=== PATIENT | female | born 2000 | race American Indian/Alaskan Native ===

== ENCOUNTER 2019-12-13 10:45 | Emergency (ER) | payer MEDICAID ==
[2019-12-13 14:16] LABS: Bilirubin,Urine NEG (Negative); Blood,Urine LG (Negative); Color,Urine Yellow (Yellow); Mucus,Urine FEW /HPF; Protein,Urine <15 mg/dL mg/dL (Negative); Urobilinogen,Urine < 2.0 mg/dL (<2.0)
[2019-12-13 14:22] LABS: HCG Qualitative,Urine Negative (Negative)
[2019-12-13 18:03] LABS: Hematocrit 36.1 % (30.3-42.9); Mean Corpuscular HGB Conc 33 % (30-34); Mean Corpuscular Volume 90 fl (79-97); Platelet Count 241 K/mm3 (140-440); Red Blood Count 4.02 M/mm3 (3.65-5.03); Red Cell Distribution Width 13.4 % (13.2-15.2)
--- NOTE | 2019-12-13 18:34 | Emergency Department Report ---
ED Female HPI - General Chief complaint: Vaginal Bleeding Stated complaint: BLEEDING HEAVY 2 WKS/PAIN Time Seen by Provider: 12/13/19 15:45 Source: patient Mode of arrival: Ambulatory Limitations: No Limitations - History of Present Illness Initial comments: 19-year-old female patient presents with complaints of heavy vaginal bleeding times today. Patient states she gave to a child about 8 months ago vaginally and denies any complications. She reports that she has been bleeding intermittently for the past month since stopping breast-feeding, however today she is bleeding very heavily and passing large clots. Patient states prior to arrival, she soaked through 8 pads. She denies any vaginal discharge, dysuria, hematuria, dyspareunia, or pelvic pain. Patient also denies any history of known fibroids, known bleeding disorders, dizziness, or syncopal episodes. She is well-appearing and in no acute distress. MD Complaint: vaginal bleeding ED Review of Systems ROS: Stated complaint: BLEEDING HEAVY 2 WKS/PAIN Other details as noted in HPI Constitutional: denies: diaphoresis, fever, malaise, weakness Respiratory: denies: shortness of breath Cardiovascular: denies: chest pain Gastrointestinal: denies: abdominal pain, nausea, vomiting, constipation, melena, hematochezia Genitourinary: abnormal menses. denies: dysuria, frequency, hematuria, discharge, dyspareunia Musculoskeletal: denies: joint swelling Neurological: denies: headache, paresthesias Hematological/Lymphatic: denies: easy bleeding, easy bruising ED Past Medical Hx - Past Medical History Previous Medical History?: No - Surgical History Past Surgical History?: No ED Physical Exam - General Limitations: No Limitations General appearance: alert, in no apparent distress - Head Head exam: Present: atraumatic, normocephalic - Eye Eye exam: Present: normal appearance - ENT ENT exam: Present: mucous membranes moist - Respiratory Respiratory exam: Present: normal lung sounds bilaterally. Absent: respiratory distress - Cardiovascular Cardiovascular Exam: Present: regular rate, normal rhythm. Absent: systolic murmur, diastolic murmur, rubs, gallop - GI/Abdominal GI/Abdominal exam: Present: soft, normal bowel sounds. Absent: distended, tenderness, guarding, rebound, rigid - Neurological Exam Neurological exam: Present: alert, oriented X3 - Skin Skin exam: Present: warm, dry, intact, normal color. Absent: rash, cyanosis, diaphoretic, petechiae, ecchymosis ED Course Vital Signs 12/13/19 11:00 Temperature 97.7 F Pulse Rate 63 Respiratory 18 Rate Blood Pressure 114/45 O2 Sat by Pulse 100 Oximetry ED Medical Decision Making - Lab Data Result diagrams: 12/13/19 17:29 Lab Results 12/13/19 12/13/19 Range/Units 17:29 Unknown WBC 4.4 L (4.5-11.0) K/mm3 RBC 4.02 (3.65-5.03) M/mm3 Hgb 12.0 (10.1-14.3) gm/dl Hct 36.1 (30.3-42.9) % MCV 90 (79-97) fl MCH 30 (28-32) pg MCHC 33 (30-34) % RDW 13.4 (13.2-15.2) % Plt Count 241 (140-440) K/mm3 Lymph % (Auto) Inspector Bullet Slugs Urine Color Yellow (Yellow) Urine Turbidity Hazy (Clear) Urine pH 7.0 (5.0-7.0) Ur Specific [place] 1.020 (1.003-1.030) Urine Protein <15 mg/dl (Negative) mg/dL Urine Glucose (UA) Neg (Negative) mg/dL Urine Ketones Neg (Negative) mg/dL Urine Blood Lg (Negative) Urine Nitrite Neg (Negative) Urine Bilirubin Neg (Negative) Urine Urobilinogen < 2.0 (<2.0) mg/dL Ur Leukocyte Esterase Neg (Negative) Urine WBC (Auto) 2.0 (0.0-6.0) /HPF Urine RBC (Auto) 1.0 (0.0-6.0) /HPF U Epithel Cells (Auto) 5.0 (0-13.0) /HPF Urine Mucus Few /HPF Urine HCG, Qual Negative (Negative) - Medical Decision Making Patient here with complaints of heavy vaginal bleeding today. She states she has had intermittent bleeding x1 month after discontinuing breast-feeding. She has no pelvic pain on exam and denies any STI symptoms. Hemoglobin = 12. UA is negative for infection. Patient is well-appearing and vitals are normal. She is stable for discharge home. Recommend follow-up in the next few days with her [facility] for further evaluation. Lucille Cabrera, per pt. Discussed very strict return precautions concerning patient volume of bleeding and signs and symptoms that should prompt immediate return to the emergency department, patient verbalizes understanding Critical care attestation.: If time is entered above; I have spent that time in minutes in the direct care of this critically ill patient, excluding procedure time. ED Disposition Clinical Impression: Abnormal vaginal bleeding Disposition: TO HOME OR SELFCARE Is pt being admited?: No Condition: Stable Referrals: PRIMARY CARE, [Primary Care Provider] - 3-5 Days
[2019-12-13 19:06] VITALS: BP 106/68
[2019-12-13 21:27] LABS: Eosinophils % (Manual) 0 % (0.0-4.3); Total Cells Counted 100
[2019-12-13 21:28] LABS: Anisocytosis Few; Large Platelets Few; Platelet Estimate Consistent w Auto
== END 2019-12-13 19:07 | disposition home or self-care (01) ==
LOC: ED 10:45
DX: N93.9 Abnormal uterine and vaginal bleeding, unspecified (principal)
CPT/HCPCS: 36415; 81001; 81025; 85007; 85025; 86850; 86900; 86901; 99283

== ENCOUNTER 2020-10-07 20:22 | Emergency (ER) | payer MEDICAID ==
[2020-10-07 23:12] LABS: Basophils % (Auto) 0.2 % (0.0-1.8); Hematocrit 39.4 % (30.3-42.9); Hemoglobin 13.5 gm/dl (10.1-14.3); Lymphocytes # (Auto) 2.4 K/mm3 (1.2-5.4); Lymphocytes % (Auto) 24.4 % (13.4-35.0); Mean Corpuscular HGB Conc 34 % (30-34); Mean Corpuscular Volume 91 fl (79-97); Monocytes # (Auto) 1.1 K/mm3 (0.0-0.8); Monocytes % (Auto) 10.6 % (0.0-7.3); Platelet Count 303 K/mm3 (140-440); Red Blood Count 4.32 M/mm3 (3.65-5.03)
[2020-10-07 23:18] VITALS: BP 126/81
[2020-10-07 23:33] LABS: Alanine Aminotransferase 21 units/L (7-56); Albumin 4.8 g/dL (3.9-5); Blood Urea Nitrogen 9 mg/dL (7-17); Hemolysis Index 13
[2020-10-07 23:37] LABS: BUN/Creatinine Ratio 18
[2020-10-08 00:58] LABS: Bacteria,Urine 1+ /HPF (Negative); Bilirubin,Urine NEG (Negative); Blood,Urine NEG (Negative); Color,Urine Yellow (Yellow); Hyaline Casts,Urine 3 /LPF; Mucus,Urine 3+ /HPF
[2020-10-08] MEDS ORDERED: ONDANSETRON 4 MG ODT TAB PO ONE (03:03)
[2020-10-08] MEDS ORDERED: SODIUM CHLORIDE 0.9% 1000 ML 1,000 ML IV ONE (03:35)
[2020-10-08] MEDS ORDERED: PYRIDOXINE 50 MG TAB PO SCH (03:35)
[2020-10-08] MEDS ORDERED: diphenhydrAMINE 50 MG/ML VIAL IV STA (03:35)
[2020-10-08] MEDS ORDERED: METOCLOPRAMIDE 10 MG/2 ML INJ IV STA (03:35)
--- NOTE | 2020-10-08 06:23 | Emergency Department Report ---
ED N/V/D HPI - General Chief complaint: Abdominal Pain Stated complaint: NAUSEA Time Seen by Provider: 10/08/20 03:33 Source: patient Mode of arrival: Ambulatory Limitations: No Limitations - History of Present Illness MD complaint: nausea, vomiting -: Gradual, days(s) Description of Vomiting: other Associated Abdominal Pain: No Consistency: constant Improves with: none Worsens with: eating Context: other ( with previous history of hyperemesis gravidarum and feels exact same symptoms at this present time during this . States she has been dealing with hyperemesis for the past couple weeks) Associated Symptoms: nausea/vomiting. denies: diaphoresis, fever/chills, loss of appetite, malaise, rash, dysuria - Related Data Previous Rx's Medication Instructions Recorded Last Taken Type Doxylamine Succinate/Vit B6 1 each PO TID #20 tablet. 10/08/20 Unknown Rx [Diclegis Dr 10-10 mg Tablet] Nitrofurantoin [place]/M-Cryst 100 mg PO Q12HR #14 capsule 10/08/20 Unknown Rx [Macrobid CAP] Allergies Allergy/AdvReac Type Severity Reaction Status Date / Time No Known Allergies Allergy Unverified 10/07/20 21:32 ED Review of Systems ROS: Stated complaint: NAUSEA Other details as noted in HPI Comment: All other systems reviewed and negative ED Past Medical Hx - Past Medical History Previous Medical History?: No - Surgical History Past Surgical History?: No - Social History Smoking Status: Never Smoker - Medications Home Medications: Home Medications Medication Instructions Recorded Confirmed Last Taken Type Doxylamine Succinate/Vit B6 1 each PO TID #20 tablet. 10/08/20 Unknown Rx [Diclegis Dr 10-10 mg Tablet] Nitrofurantoin [place]/M-Cryst 100 mg PO Q12HR #14 capsule 10/08/20 Unknown Rx [Macrobid CAP] ED Physical Exam - General Limitations: No Limitations General appearance: alert, in no apparent distress, other (In good spirits appears rather jovial for her condition) - Head Head exam: Present: atraumatic, normocephalic - Eye Eye exam: Present: normal appearance, PERRL, EOMI - ENT ENT exam: Present: normal exam, normal orophraynx, mucous membranes moist, TM's normal bilaterally - Neck Neck exam: Present: normal inspection, full ROM - Respiratory Respiratory exam: Present: normal lung sounds bilaterally. Absent: respiratory distress, wheezes, rhonchi, chest wall tenderness, accessory muscle use, decreased breath sounds - Cardiovascular Cardiovascular Exam: Present: regular rate, normal rhythm. Absent: systolic mu rmur, diastolic murmur, rubs, gallop - GI/Abdominal GI/Abdominal exam: Present: soft, normal bowel sounds - Extremities Exam Extremities exam: Present: normal inspection - Back Exam Back exam: Present: normal inspection - Neurological Exam Neurological exam: Present: alert, oriented X3 - Psychiatric Psychiatric exam: Present: normal affect, normal mood - Skin Skin exam: Present: warm, dry, intact, normal color. Absent: rash ED Course Vital Signs 10/07/20 23:18 Temperature 98.1 F Pulse Rate 103 H Respiratory 18 Rate Blood Pressure 126/81 [Left] O2 Sat by Pulse 99 Oximetry ED Medical Decision Making - Lab Data Result diagrams: 10/07/20 22:32 10/07/20 22:32 Lab Results 10/07/20 10/07/20 10/07/20 Range/Units 22:32 22:32 22:32 WBC 9.9 (4.5-11.0) K/mm3 RBC 4.32 (3.65-5.03) M/mm3 Hgb 13.5 (10.1-14.3) gm/dl Hct 39.4 (30.3-42.9) % MCV 91 (79-97) fl MCH 31 (28-32) pg MCHC 34 (30-34) % RDW 13.0 L (13.2-15.2) % Plt Count 303 (140-440) K/mm3 Lymph % (Auto) 24.4 (13.4-35.0) % [place] % (Auto) 10.6 H (0.0-7.3) % Eos % (Auto) 0.0 (0.0-4.3) % Baso % (Auto) 0.2 (0.0-1.8) % Lymph # (Auto) 2.4 (1.2-5.4) K/mm3 [place] # (Auto) 1.1 H (0.0-0.8) K/mm3 Eos # (Auto) 0.0 (0.0-0.4) K/mm3 Baso # (Auto) 0.0 (0.0-0.1) K/mm3 Seg Neutrophils % 64.8 (40.0-70.0) % Seg Neutrophils # 6.4 (1.8-7.7) K/mm3 Sodium 134 L (137-145) mmol/L Potassium 3.0 L (3.6-5.0) mmol/L Chloride 92.5 L (98-107) mmol/L Carbon Dioxide 25 (22-30) mmol/L Anion Gap 20 mmol/L BUN 9 (7-17) mg/dL Creatinine 0.5 L (0.6-1.2) mg/dL Estimated GFR > 60 ml/min BUN/Creatinine Ratio 18 % Glucose 122 H (65-100) mg/dL Calcium 10.0 (8.4-10.2) mg/dL Total Bilirubin 0.30 (0.1-1.2) mg/dL AST 22 (5-40) units/L ALT 21 (7-56) units/L Alkaline Phosphatase 75 (35-129) units/L Total Protein 9.0 H (6.3-8.2) g/dL Albumin 4.8 (3.9-5) g/dL Albumin/Globulin Ratio 1.1 % HCG, Qual Positive (Negative) Urine Color (Yellow) Urine Turbidity (Clear) Urine pH (5.0-7.0) Ur Specific [place] (1.003-1.030) Urine Protein (Negative) mg/dL Urine Glucose (UA) (Negative) mg/dL Urine Ketones (Negative) mg/dL Urine Blood (Negative) Urine Nitrite (Negative) Urine Bilirubin (Negative) Urine Urobilinogen (<2.0) mg/dL Ur Leukocyte Esterase (Negative) Urine WBC (Auto) (0.0-6.0) /HPF Urine RBC (Auto) (0.0-6.0) /HPF U Epithel Cells (Auto) (0-13.0) /HPF Urine Bacteria (Auto) (Negative) /HPF Hyaline Casts /LPF Urine Mucus /HPF Urine Yeast (Budding) /HPF 12/15/20 Range/Units 23:48 WBC (4.5-11.0) K/mm3 RBC (3.65-5.03) M/mm3 Hgb (10.1-14.3) gm/dl Hct (30.3-42.9) % MCV (79-97) fl MCH (28-32) pg MCHC (30-34) % RDW (13.2-15.2) % Plt Count (140-440) K/mm3 Lymph % (Auto) (13.4-35.0) % [place] % (Auto) (0.0-7.3) % Eos % (Auto) (0.0-4.3) % Baso % (Auto) (0.0-1.8) % Lymph # (Auto) (1.2-5.4) K/mm3 [place] # (Auto) (0.0-0.8) K/mm3 Eos # (Auto) (0.0-0.4) K/mm3 Baso # (Auto) (0.0-0.1) K/mm3 Seg Neutrophils % (40.0-70.0) % Seg Neutrophils # (1.8-7.7) K/mm3 Sodium (137-145) mmol/L Potassium (3.6-5.0) mmol/L Chloride (98-107) mmol/L Carbon Dioxide (22-30) mmol/L Anion Gap mmol/L BUN (7-17) mg/dL Creatinine (0.6-1.2) mg/dL Estimated GFR ml/min BUN/Creatinine Ratio % Glucose (65-100) mg/dL Calcium (8.4-10.2) mg/dL Total Bilirubin (0.1-1.2) mg/dL AST (5-40) units/L ALT (7-56) units/L Alkaline Phosphatase (35-129) units/L Total Protein (6.3-8.2) g/dL Albumin (3.9-5) g/dL Albumin/Globulin Ratio % HCG, Qual (Negative) Urine Color Yellow (Yellow) Urine Turbidity Clear (Clear) Urine pH 5.0 (5.0-7.0) Ur Specific [place] 1.030 (1.003-1.030) Urine Protein 100 mg/dl (Negative) mg/dL Urine Glucose (UA) Neg (Negative) mg/dL Urine Ketones 80 (Negative) mg/dL Urine Blood Neg (Negative) Urine Nitrite Neg (Negative) Urine Bilirubin Neg (Negative) Urine Urobilinogen 2.0 (<2.0) mg/dL Ur Leukocyte Esterase Mod (Negative) Urine WBC (Auto) 39.0 H (0.0-6.0) /HPF Urine RBC (Auto) 10.0 (0.0-6.0) /HPF U Epithel Cells (Auto) 2.0 (0-13.0) /HPF Urine Bacteria (Auto) 1+ (Negative) /HPF Hyaline Casts 3 /LPF Urine Mucus 3+ /HPF Urine Yeast (Budding) Few /HPF - Medical Decision Making Female presents emergency department complaining of nausea and vomiting without diarrhea. The patient is overall well-appearing and suspected to have hyperemesis gravidarum. Given the history of examination he does not appear to be an emergency cause for the symptoms such as small bowel obstruction, coronary syndrome, bowel ischemia, DKA, pancreatitis, appendicitis, acute abdomen no emergent problem. Patient was treated with Reglan, Benadryl, fluids as well as vitamin D6. After treatment patient is feeling much better tolerating p.o. fluids shows no signs of dehydration Critical care attestation.: If time is entered above; I have spent that time in minutes in the direct care of this critically ill patient, excluding procedure time. ED Disposition Clinical Impression: Hyperemesis arising during , UTI (urinary tract infection) Disposition: DC-01 TO HOME OR SELFCARE Is pt being admited?: No Does the pt Need Aspirin: No Condition: Stable Instructions: Hyperemesis Gravidarum, Morning Sickness, Abdominal Pain (ED) Prescriptions: Doxylamine Succinate/Vit B6 [Irina Cabrera 10-10 mg Tablet] 1 each PO TID #20 tablet. Nitrofurantoin [place]/M-Cryst [Macrobid CAP] 100 mg PO Q12HR #14 capsule Referrals: [facility] [Provider Group] - 3-5 Days PRIMARY CARE, [Primary Care Provider] - 3-5 Days
== END 2020-10-08 06:30 | disposition home or self-care (01) ==
LOC: ED 20:22
DX: O21.0 Mild hyperemesis gravidarum (principal); O23.41 Unspecified infection of urinary tract in pregnancy, first trimester
CPT/HCPCS: 36415; 80053; 81001; 84703; 85025; 87086; 96360; 96372; 99283; J1200; J2765; J7030; Q0162

== ENCOUNTER 2021-03-28 13:01 | Inpatient (IN) | payer MEDICAID ==
[2021-03-28] MEDS ORDERED: TERBUTALINE 1 MG/1 ML INJ SUB-Q PRN (15:27)
[2021-03-28] MEDS ORDERED: ePHEDrine SULFATE 50 MG/1 ML INJ IV PRN (15:27)
[2021-03-28] MEDS ORDERED: LIDOCAINE (2%) 20 MG/1 ML VIAL 20 ML MDV INFILTRATI ONE (15:27)
[2021-03-28] MEDS ORDERED: MINERAL OIL 30 ML ORAL LIQD PO PRN (15:27)
[2021-03-28] MEDS ORDERED: MAGNESIUM SULFATE 4 GM/100 ML BAG IV ONE (15:30)
[2021-03-28] MEDS ORDERED: fentaNYL 100 MCG/2 ML INJ IV PRN (15:32)
--- NOTE | 2021-03-28 15:47 | History and Physical Report ---
History of Present Illness Date of examination: 03/28/21 Date of admission: 03/28/2021 Chief complaint: PPROM History of present illness: 20yo at 31.6 weeks with CIERA 05/24/21 presents with ~24 hours of PPROM. She complains of irregular contractions, no vaginal bleeding and admits to good movement. PNC at [facility]: no PNR available at this time. Past History Past Surgical History: no surgical history - Obstetrical History Expected Date of Delivery: 05/24/21 Actual Gestation: 31 Week(s) 6 Day(s) : 2 Para: 1 Medications and Allergies Allergies Allergy/AdvReac Type Severity Reaction Status Date / Time No Known Allergies Allergy Unverified 10/07/20 21:32 Home Medications Medication Instructions Recorded Confirmed Last Taken Type Doxylamine Succinate/Vit B6 1 each PO TID #20 tablet. 10/08/20 Unknown Rx [Diclegis Dr 10-10 mg Tablet] Nitrofurantoin [place]/M-Cryst 100 mg PO Q12HR #14 capsule 10/08/20 Unknown Rx [Macrobid CAP] Active Meds: Active Medications Betamethasone Acet/Betameth SodPhos (Betamet Acet/Betamet Na Ph 6 Mg/Ml Inj 5 Ml Mdv) 12 mg IM Q24H AKILA Stop: 03/29/21 16:01 Ephedrine Sulfate (Ephedrine Sulfate 50 Mg/1 Ml Inj) 10 mg IV Q2M PRN PRN Reason: Hypotension Fentanyl (Fentanyl 100 Mcg/2 Ml Inj) 50 mcg IV Q6HR PRN PRN Reason: Pain, Moderate (4-6) Oxytocin/Sodium Chloride (Pitocin/Ns 30 Unit/500ml) 30 units in 500 mls @ 2 mls/hr IV TITR AKILA; Protocol Lactated Ringer's (Lactated Ringers) 1,000 mls @ 125 mls/hr IV DIRECT AKILA Magnesium Sulfate (Magnesium Sulfate 40gm/1000ml) 40 gm in 1,000 mls @ 50 mls/hr IV DIRECT AKILA Magnesium Sulfate (Magnesium Sulfate 4gm/100ml) 4 gm in 100 mls @ 300 mls/hr IV ONCE ONE Stop: 03/28/21 15:49 Ampicillin Sodium (Ampicillin/Ns 2 Gm/100 Ml) 2 gm in 100 mls @ 100 mls/hr IV Q6H AKILA; Protocol Erythromycin Lactobionate 250 (mg/ Sodium Chloride) 100 mls @ 100 mls/hr IV Q6H AKILA; Protocol Stop: 03/30/21 10:59 Mineral Oil (Mineral Oil 30 Ml Oral Liqd) 30 ml PO QHS PRN PRN Reason: Constipation Terbutaline Sulfate (Terbutaline 1 Mg/1 Ml Inj) 0.25 mg SUB-Q ONCE PRN PRN Reason: Hyperstimulation/Hypertonicity Review of Systems All systems: negative (see HPI) - Vital Signs Vital signs: Vital Signs Pulse BP 85 91/56 03/28/21 13:42 03/28/21 13:42 Temp Pulse Resp BP Pulse Ox 98.6 F 85 16 91/56 03/28/21 13:43 03/28/21 13:43 03/28/21 13:43 03/28/21 13:43 - Physical Exam Breasts: Positive: deferred Cardiovascular: Regular rate Lungs: Positive: Clear to auscultation Abdomen: Positive: normal appearance, normal bowel sounds Genitourinary (Female): Positive: normal external genitalia Vagina: Positive: normal moisture Uterus: Positive: other (FH30cm) Anus/Rectum: Positive: normal perianal skin Extremities: Positive: normal Deep Tendon Reflex Grade: Normal +2 - Obstetrical FHR: category 1 Cervical Dilatation: 0 Cervical Effacement Percentage: 75 station: -2 Uterine Contraction Pattern: Irregular Results Abnormal lab results 03/28/21 Range/Units 13:35 Membranes Rupture Positive A (Negative) All other labs normal. Assessment and Plan PPROM admission MgSO4 ABX steroids CFM obtain PNR Maternal/ well being reassuring at bedside. Maral Sharp MD
[2021-03-28] MEDS ORDERED: OXYTOCIN DRIP 30 UNITS/500 ML BAG IV SCH (16:00)
--- NOTE | 2021-03-28 16:01 | Ultrasound Report ---
ULTRASOUND OBSTETRIC LIMITED ULTRASOUND BIOPHYSICAL PROFILE INDICATION / CLINICAL INFORMATION: bpp/lisa. Clinical Gestational Age (GA): 31.6 weeks.days COMPARISON: None available. FINDINGS: Single intrauterine . BREATHING MOVEMENT = 2 GROSS BODY MOVEMENT = 2 TONE = 2 QUALITATIVE AMNIOTIC FLUID VOLUME = 0 TOTAL BIOPHYSICAL SCORE = 6/8 HEART RATE (beats per minute): 140 AMNIOTIC FLUID INDEX (cm) = 2.4 (normal = 7-24 cm) PRESENTATION: Cephalic. ADDITIONAL FINDINGS: None. IMPRESSION: 1. Biophysical Score = 6/8 , secondary to qualitative amniotic fluid volume is described below. 2. Oligohydramnios with LISA measuring 2.4 cm. Signer Name: Darrell Martínez MD Signed: 03/28/2021 3:56 PM Workstation Name: [id number]
[2021-03-28] MEDS: LACTATED RINGERS 1,000 ML IV SCH (16:30)
[2021-03-28] MEDS: BETAMET ACET/BETAMET NA PH 6 MG/ML INJ 5 ML MDV IM SCH (16:35)
[2021-03-28] MEDS: MAGNESIUM SULFATE 40GM/1000ML 40 GM/1,000 ML BAG IV SCH (17:00)
[2021-03-28] MEDS: AMPICILLIN/NS 2 GM/100 ML 2 GM/100 ML BAG IV SCH (17:00)
[2021-03-28 19:04] LABS: Hematocrit 27.5 % (30.3-42.9); Hemoglobin 9.4 gm/dl (10.1-14.3); Mean Corpuscular HGB Conc 34 % (30-34); Mean Corpuscular Volume 91 fl (79-97); Platelet Count 192 K/mm3 (140-440); Red Blood Count 3.02 M/mm3 (3.65-5.03); Red Cell Distribution Width 12.6 % (13.2-15.2)
[2021-03-28] MEDS: ERYTHROMYCIN LACTOBIONATE 250 MG in SODIUM CHLORIDE 0.9% 100 ML IV SCH ×2 (23:34→23:35)
[2021-03-29] MEDS: AMPICILLIN/NS 2 GM/100 ML 2 GM/100 ML BAG IV SCH ×4 (00:16→20:17)
[2021-03-29] MEDS: LACTATED RINGERS 1,000 ML IV SCH ×2 (02:17→16:49)
[2021-03-29] MEDS: ERYTHROMYCIN LACTOBIONATE 250 MG in SODIUM CHLORIDE 0.9% 100 ML IV SCH ×3 (07:12→18:39)
[2021-03-29 09:46] LABS: Hepatitis C Virus Antibody Non-Reactive (NonReactive)
--- NOTE | 2021-03-29 10:26 | Progress Note ---
Subjective - Subjective Date of service: 03/29/21 Interval history: 20yo at 32.0 weeks with PPROM. She is doing well at bedside. SP celestonex1 dose, second dose to be given this evening. An Amp/Erythro IVPB day #2 No contractions Category 1 strip [place]: not ana labs ordered in process [facility] consult pending Maternal/ well being reassuring at bedside. Maral Sharp MD Objective - Vital Signs Vital Signs: Vital Signs - 12hr 03/28/21 03/28/21 03/28/21 22:18 22:23 22:28 Temperature Pulse Rate 96 H 82 92 H Respiratory Rate Blood Pressure Blood Pressure [Left] O2 Sat by Pulse 98 100 100 Oximetry 03/28/21 03/28/21 03/28/21 22:33 22:38 22:43 Temperature Pulse Rate 90 87 89 Respiratory Rate Blood Pressure Blood Pressure [Left] O2 Sat by Pulse 100 100 100 Oximetry 03/28/21 03/28/21 03/28/21 22:48 22:53 22:58 Temperature Pulse Rate 86 89 91 H Respiratory Rate Blood Pressure Blood Pressure [Left] O2 Sat by Pulse 100 100 100 Oximetry 03/28/21 03/28/21 03/28/21 23:03 23:05 23:08 Temperature Pulse Rate 90 94 H 89 Respiratory Rate Blood Pressure Blood Pressure [Left] O2 Sat by Pulse 100 90 92 Oximetry 03/28/21 03/28/21 03/28/21 23:13 23:18 23:23 Temperature Pulse Rate 87 81 90 Respiratory Rate Blood Pressure Blood Pressure [Left] O2 Sat by Pulse 100 99 100 Oximetry 03/28/21 03/28/21 03/28/21 23:28 23:30 23:33 Temperature 98.5 F Pulse Rate 89 95 H Respiratory Rate Blood Pressure Blood Pressure [Left] O2 Sat by Pulse 100 99 Oximetry 03/28/21 03/28/21 03/28/21 23:38 23:42 23:43 Temperature Pulse Rate 82 92 H 86 Respiratory Rate Blood Pressure Blood Pressure [Left] O2 Sat by Pulse 99 94 100 Oximetry 03/28/21 03/28/21 03/28/21 23:48 23:53 23:58 Temperature Pulse Rate 84 84 91 H Respiratory Rate Blood Pressure Blood Pressure [Left] O2 Sat by Pulse 100 100 99 Oximetry 03/29/21 03/29/21 03/29/21 00:03 00:08 00:12 Temperature Pulse Rate 97 H 84 84 Respiratory Rate Blood Pressure 101/55 Blood Pressure [Left] O2 Sat by Pulse 99 98 Oximetry 03/29/21 03/29/21 03/29/21 00:13 00:18 00:23 Temperature Pulse Rate 92 H 92 H 94 H Respiratory Rate Blood Pressure Blood Pressure [Left] O2 Sat by Pulse 99 98 98 Oximetry 03/29/21 03/29/21 03/29/21 00:28 00:33 00:38 Temperature Pulse Rate 91 H 89 88 Respiratory Rate Blood Pressure Blood Pressure [Left] O2 Sat by Pulse 97 98 99 Oximetry 03/29/21 03/29/21 03/29/21 00:43 00:48 00:53 Temperature Pulse Rate 94 H 92 H 89 Respiratory Rate Blood Pressure Blood Pressure [Left] O2 Sat by Pulse 100 98 98 Oximetry 03/29/21 03/29/21 03/29/21 00:58 01:03 01:08 Temperature Pulse Rate 88 85 84 Respiratory Rate Blood Pressure Blood Pressure [Left] O2 Sat by Pulse 98 98 98 Oximetry 03/29/21 03/29/21 03/29/21 01:12 01:13 01:18 Temperature Pulse Rate 82 86 86 Respiratory Rate Blood Pressure 90/55 Blood Pressure [Left] O2 Sat by Pulse 98 98 Oximetry 03/29/21 03/29/21 03/29/21 01:23 01:28 01:33 Temperature Pulse Rate 86 88 86 Respiratory Rate Blood Pressure Blood Pressure [Left] O2 Sat by Pulse 98 98 98 Oximetry 03/29/21 03/29/21 03/29/21 01:38 01:43 01:48 Temperature Pulse Rate 86 88 84 Respiratory Rate Blood Pressure Blood Pressure [Left] O2 Sat by Pulse 98 98 98 Oximetry 03/29/21 03/29/21 03/29/21 01:53 01:58 02:03 Temperature Pulse Rate 81 82 86 Respiratory Rate Blood Pressure Blood Pressure [Left] O2 Sat by Pulse 99 98 99 Oximetry 03/29/21 03/29/21 03/29/21 02:08 02:12 02:13 Temperature Pulse Rate 80 90 91 H Respiratory Rate Blood Pressure 83/50 Blood Pressure [Left] O2 Sat by Pulse 100 98 Oximetry 03/29/21 03/29/21 03/29/21 02:18 02:23 02:28 Temperature Pulse Rate 92 H 79 80 Respiratory Rate Blood Pressure Blood Pressure [Left] O2 Sat by Pulse 99 98 98 Oximetry 03/29/21 03/29/21 03/29/21 02:33 02:38 02:43 Temperature Pulse Rate 79 79 86 Respiratory Rate Blood Pressure Blood Pressure [Left] O2 Sat by Pulse 96 97 97 Oximetry 03/29/21 03/29/21 03/29/21 02:48 02:53 02:58 Temperature Pulse Rate 87 86 88 Respiratory Rate Blood Pressure Blood Pressure [Left] O2 Sat by Pulse 96 96 98 Oximetry 03/29/21 03/29/21 03/29/21 03:03 03:08 03:12 Temperature Pulse Rate 89 90 86 Respiratory Rate Blood Pressure 80/46 Blood Pressure [Left] O2 Sat by Pulse 98 99 Oximetry 03/29/21 03/29/21 03/29/21 03:13 03:18 03:23 Temperature Pulse Rate 85 85 87 Respiratory Rate Blood Pressure Blood Pressure [Left] O2 Sat by Pulse 99 98 97 Oximetry 03/29/21 03/29/21 03/29/21 03:28 03:30 03:33 Temperature 98.7 F Pulse Rate 87 84 Respiratory Rate Blood Pressure Blood Pressure [Left] O2 Sat by Pulse 98 97 Oximetry 03/29/21 03/29/21 03/29/21 03:38 03:43 03:48 Temperature Pulse Rate 88 87 84 Respiratory Rate Blood Pressure Blood Pressure [Left] O2 Sat by Pulse 97 98 99 Oximetry 03/29/21 03/29/21 03/29/21 03:53 03:58 04:03 Temperature Pulse Rate 85 85 84 Respiratory Rate Blood Pressure Blood Pressure [Left] O2 Sat by Pulse 98 98 98 Oximetry 03/29/21 03/29/21 03/29/21 04:08 04:12 04:19 Temperature Pulse Rate 86 81 84 Respiratory Rate Blood Pressure 85/53 Blood Pressure [Left] O2 Sat by Pulse 98 100 Oximetry 03/29/21 03/29/21 03/29/21 04:24 04:29 04:34 Temperature Pulse Rate 80 81 79 Respiratory Rate Blood Pressure Blood Pressure [Left] O2 Sat by Pulse 100 100 100 Oximetry 03/29/21 03/29/21 03/29/21 04:39 04:44 04:49 Temperature Pulse Rate 84 84 83 Respiratory Rate Blood Pressure Blood Pressure [Left] O2 Sat by Pulse 99 99 100 Oximetry 03/29/21 03/29/21 03/29/21 04:54 04:59 05:04 Temperature Pulse Rate 85 81 76 Respiratory Rate Blood Pressure Blood Pressure [Left] O2 Sat by Pulse 100 100 100 Oximetry 03/29/21 03/29/21 03/29/21 05:09 05:12 05:14 Temperature Pulse Rate 92 H 82 82 Respiratory Rate Blood Pressure 93/56 Blood Pressure [Left] O2 Sat by Pulse 99 99 Oximetry 03/29/21 03/29/21 03/29/21 05:19 05:24 05:29 Temperature Pulse Rate 84 80 83 Respiratory Rate Blood Pressure Blood Pressure [Left] O2 Sat by Pulse 100 100 100 Oximetry 03/29/21 03/29/21 03/29/21 05:34 05:39 05:43 Temperature Pulse Rate 77 83 76 Respiratory Rate Blood Pressure Blood Pressure [Left] O2 Sat by Pulse 96 100 89 Oximetry 03/29/21 03/29/21 03/29/21 05:44 05:49 05:54 Temperature Pulse Rate 82 74 74 Respiratory Rate Blood Pressure Blood Pressure [Left] O2 Sat by Pulse 92 100 100 Oximetry 03/29/21 03/29/21 03/29/21 05:59 06:04 06:09 Temperature Pulse Rate 78 77 78 Respiratory Rate Blood Pressure Blood Pressure [Left] O2 Sat by Pulse 98 100 100 Oximetry 03/29/21 03/29/21 03/29/21 06:12 06:24 06:27 Temperature Pulse Rate 79 71 84 Respiratory Rate Blood Pressure 98/57 Blood Pressure [Left] O2 Sat by Pulse 100 93 Oximetry 03/29/21 03/29/21 03/29/21 06:29 06:34 06:40 Temperature Pulse Rate 81 83 74 Respiratory Rate Blood Pressure Blood Pressure [Left] O2 Sat by Pulse 100 100 100 Oximetry 03/29/21 03/29/21 03/29/21 06:45 06:49 06:54 Temperature Pulse Rate 73 79 73 Respiratory Rate Blood Pressure Blood Pressure [Left] O2 Sat by Pulse 100 99 100 Oximetry 03/29/21 03/29/21 03/29/21 06:59 07:03 07:04 Temperature 97.6 F Pulse Rate 78 80 79 Respiratory 12 Rate Blood Pressure 96/56 Blood Pressure 96/56 [Left] O2 Sat by Pulse 100 100 100 Oximetry 03/29/21 03/29/21 03/29/21 07:09 07:18 07:22 Temperature Pulse Rate 86 85 80 Respiratory Rate Blood Pressure 110/58 Blood Pressure [Left] O2 Sat by Pulse 100 100 100 Oximetry 03/29/21 03/29/21 03/29/21 07:25 07:27 07:33 Temperature Pulse Rate 94 H 76 80 Respiratory Rate Blood Pressure Blood Pressure [Left] O2 Sat by Pulse 94 100 100 Oximetry 03/29/21 03/29/21 03/29/21 07:38 07:42 07:48 Temperature Pulse Rate 87 77 79 Respiratory Rate Blood Pressure Blood Pressure [Left] O2 Sat by Pulse 100 100 99 Oximetry 03/29/21 03/29/21 03/29/21 07:52 07:58 08:02 Temperature Pulse Rate 85 84 83 Respiratory Rate Blood Pressure Blood Pressure [Left] O2 Sat by Pulse 99 99 99 Oximetry 03/29/21 03/29/21 03/29/21 08:07 08:12 08:13 Temperature Pulse Rate 82 81 82 Respiratory Rate Blood Pressure 97/54 Blood Pressure [Left] O2 Sat by Pulse 99 99 Oximetry 03/29/21 03/29/21 03/29/21 08:17 08:22 08:27 Temperature Pulse Rate 84 83 80 Respiratory Rate Blood Pressure Blood Pressure [Left] O2 Sat by Pulse 98 98 97 Oximetry 03/29/21 03/29/21 03/29/21 08:32 08:37 08:42 Temperature Pulse Rate 81 82 82 Respiratory Rate Blood Pressure Blood Pressure [Left] O2 Sat by Pulse 99 99 98 Oximetry 03/29/21 03/29/21 03/29/21 08:48 08:52 08:57 Temperature Pulse Rate 85 84 95 H Respiratory Rate Blood Pressure Blood Pressure [Left] O2 Sat by Pulse 98 98 99 Oximetry 03/29/21 03/29/21 03/29/21 09:02 09:07 09:12 Temperature Pulse Rate 90 83 85 Respiratory Rate Blood Pressure 98/56 Blood Pressure [Left] O2 Sat by Pulse 100 100 Oximetry 03/29/21 03/29/21 03/29/21 09:13 09:18 09:22 Temperature Pulse Rate 81 89 87 Respiratory Rate Blood Pressure Blood Pressure [Left] O2 Sat by Pulse 100 100 100 Oximetry 03/29/21 03/29/21 03/29/21 09:28 09:33 09:38 Temperature Pulse Rate 86 84 93 H Respiratory Rate Blood Pressure Blood Pressure [Left] O2 Sat by Pulse 99 99 99 Oximetry 03/29/21 03/29/21 03/29/21 09:43 09:44 09:49 Temperature Pulse Rate 65 88 91 H Respiratory Rate Blood Pressure Blood Pressure [Left] O2 Sat by Pulse 84 85 100 Oximetry 03/29/21 03/29/21 03/29/21 09:54 09:59 10:04 Temperature Pulse Rate 92 H 90 86 Respiratory Rate Blood Pressure Blood Pressure [Left] O2 Sat by Pulse 100 100 99 Oximetry 03/29/21 03/29/21 03/29/21 10:09 10:12 10:14 Temperature Pulse Rate 91 H 90 89 Respiratory Rate Blood Pressure 83/49 Blood Pressure [Left] O2 Sat by Pulse 100 99 Oximetry - Labs Labs: Abnormal Labs 03/28/21 03/28/21 13:35 17:58 RBC 3.02 L Hgb 9.4 L Hct 27.5 L RDW 12.6 L Membranes Rupture Positive A Laboratory Results - last 24 hr 03/28/21 03/28/21 03/28/21 13:35 17:58 18:03 WBC 8.5 RBC 3.02 L Hgb 9.4 L Hct 27.5 L MCV 91 MCH 31 MCHC 34 RDW 12.6 L Plt Count 192 Membranes Rupture Positive A Syphilis IgG Antibody Hep Bs Antigen Hepatitis C Antibody HIV 1&2 Antibody Rapid HIV P24 Antigen Rubella IgG Antibody Blood Type A NEGATIVE Antibody Screen Negative 03/29/21 03/29/21 03/29/21 09:04 09:04 09:04 WBC RBC Hgb Hct MCV MCH MCHC RDW Plt Count Membranes Rupture Syphilis IgG Antibody Nonreactive Hep Bs Antigen Non-reactive Hepatitis C Antibody Non-reactive HIV 1&2 Antibody Rapid Non react HIV P24 Antigen Non react Rubella IgG Antibody Immune Blood Type Antibody Screen
[2021-03-29] MEDS: MAGNESIUM SULFATE 40GM/1000ML 40 GM/1,000 ML BAG IV SCH (11:52)
[2021-03-29] MEDS: BETAMET ACET/BETAMET NA PH 6 MG/ML INJ 5 ML MDV IM SCH (16:10)
[2021-03-30] MEDS: ERYTHROMYCIN LACTOBIONATE 250 MG in SODIUM CHLORIDE 0.9% 100 ML IV SCH ×3 (00:22→10:18)
[2021-03-30] MEDS: AMPICILLIN/NS 2 GM/100 ML 2 GM/100 ML BAG IV SCH (01:59)
--- NOTE | 2021-03-30 09:24 | Progress Note ---
Subjective - Subjective Date of service: 03/30/21 Interval history: 20yo at 32.1 weeks with PPROM. She is doing well at bedside. SP celestonex2,off MGSO4 no contractions An Amp/Erythro IVPBx48 hours, will transition to PO abx today No contractions Category 1 strip [place]: not ana labs in [facility] consult pending will obtain records from [place] Maternal/ well being reassuring at bedside. Maral Sharp MD Objective - Vital Signs Vital Signs: Vital Signs - 12hr 03/30/21 03/30/21 07:14 07:40 Temperature 98.3 F Pulse Rate 73 Respiratory 20 Rate Blood Pressure 107/54 - Labs Labs: Abnormal Labs 03/28/21 03/28/21 03/29/21 13:35 17:58 10:03 RBC 3.02 L Hgb 9.4 L Hct 27.5 L RDW 12.6 L Magnesium 5.90 H Membranes Rupture Positive A 03/29/21 16:15 RBC Hgb Hct RDW Magnesium 6.00 H Membranes Rupture Laboratory Results - last 24 hr 03/29/21 03/29/21 03/29/21 09:04 09:04 09:04 Magnesium Syphilis IgG Antibody Nonreactive Coronavirus (PCR) Hep Bs Antigen Non-reactive Hepatitis C Antibody Non-reactive HIV 1&2 Antibody Rapid Non react HIV P24 Antigen Non react Rubella IgG Antibody Immune 03/29/21 03/29/21 03/29/21 10:03 16:15 Unknown Magnesium 5.90 H 6.00 H Syphilis IgG Antibody Coronavirus (PCR) Negative Hep Bs Antigen Hepatitis C Antibody HIV 1&2 Antibody Rapid HIV P24 Antigen Rubella IgG Antibody
[2021-03-30] MEDS: ERYTHROMYCIN BASE 250 MG CAPSULE DR PO SCH ×2 (13:59→18:00)
[2021-03-30] MEDS: AMOXICILLIN 250 MG CAP PO SCH ×2 (14:00→21:49)
[2021-03-30] MEDS: LACTATED RINGERS 1,000 ML IV SCH (17:50)
--- NOTE | 2021-03-30 22:05 | Consultation ---
History of Present Illness - Reason for Consult Consult date: 03/30/21 PROM Requesting physician: CED ASHLEY - History of Present Illness Ms. Morin is a 20 y/o seen in consultation after admission on 03/29/21 following PPROM 24 hours prior to presentation. She reported without any complaints of contractions or vaginal bleeding. She did complain of decreased movement in the interim between PPROM and presentation. She is without any complaints on my evaluation. She continues to have clear leakage. Past History Past Medical History: No medical history Past Surgical History: No surgical history Social history: no significant social history Family history: no significant family history Medications and Allergies Allergies Allergy/AdvReac Type Severity Reaction Status Date / Time No Known Allergies Allergy Verified 03/30/21 07:42 Home Medications Medication Instructions Recorded Confirmed Last Taken Type Ondansetron HCl [Zofran] 4 mg PO DAILY 03/29/21 03/29/21 03/27/21 History No.137/Iron/Folic Acd 1 each PO DAILY 03/29/21 03/29/21 03/28/21 History [[facility] Tablet] Active Meds: Active Medications Amoxicillin (Amoxicillin 250 Mg Cap) 250 mg PO Q8HR AKILA; Protocol Stop: 04/04/21 13:59 Last Admin: 03/30/21 21:49 Dose: 250 mg Documented by: Ephedrine Sulfate (Ephedrine Sulfate 50 Mg/1 Ml Inj) 10 mg IV Q2M PRN PRN Reason: Hypotension Erythromycin (Erythromycin Base [address]) 250 mg PO Q6HR AKILA; Protocol Stop: 04/04/21 06:01 Last Admin: 03/30/21 18:00 Dose: 250 mg Documented by: Fentanyl (Fentanyl 100 Mcg/2 Ml Inj) 50 mcg IV Q6HR PRN PRN Reason: Pain, Moderate (4-6) Oxytocin/Sodium Chloride (Pitocin/Ns 30 Unit/500ml) 30 units in 500 mls @ 2 mls/hr IV TITR AKILA; Protocol Lactated Ringer's (Lactated Ringers) 1,000 mls @ 125 mls/hr IV DIRECT AKILA Last Admin: 03/30/21 17:50 Dose: 125 mls/hr Documented by: Magnesium Sulfate (Magnesium Sulfate 40gm/1000ml) 40 gm in 1,000 mls @ 50 mls/hr IV DIRECT AKILA Last Infusion: 03/29/21 16:17 Dose: 0 gm/hr, 0 mls/hr Documented by: Mineral Oil (Mineral Oil 30 Ml Oral Liqd) 30 ml PO QHS PRN PRN Reason: Constipation Terbutaline Sulfate (Terbutaline 1 Mg/1 Ml Inj) 0.25 mg SUB-Q ONCE PRN PRN Reason: Hyperstimulation/Hypertonicity Review of Systems All systems: negative Constitutional: no fever, no chills Ears, nose, mouth and throat: no nasal congestion, no sore throat, no headache, no vertigo Cardiovascular: no chest pain, no palpitations, no syncope, no shortness of breath Respiratory: no cough, no shortness of breath Gastrointestinal: no abdominal pain, no nausea, no vomiting, no constipation Genitourinary Female: vaginal discharge, , no dysuria Musculoskeletal: no myalgias Integumentary: no rash, no pruritis Neurological: no paralysis, no headaches Endocrine: no cold intolerance, no heat intolerance Hematologic/Lymphatic: no easy bruising, no easy bleeding Exam - Constitutional Vitals: Temp Pulse Resp BP Pulse Ox 98.6 F 78 20 100/57 100 03/30/21 20:04 03/30/21 20:06 03/30/21 20:04 03/30/21 20:06 03/29/21 17:09 General appearance: Present: no acute distress - Cardiovascular Rhythm: regular - Abdominal General gastrointestinal: Present: soft, non-tender - Additional findings Additional findings: FHT: Category I, 130-140s, + accelerations, no decelerations TOCO: + irritability Results - Labs CBC & Chem 7: 03/28/21 17:58 - Imaging and Cardiology US - abdomen: report reviewed Assessment and Plan PROM We discussed PROM and the implications at this gestational age in . I explained PROM may occur for a variety of reasons. Risk factors associated with PROM include a prior delivery or PROM, 2nd or 3rd trimester bleeding, smoking, low BMI, and recreational drug use. Among women with PROM, clinical evidence of an infection is present in approximately 15-25%. Latency to after membrane rupture is inversely correlated with the gestational age at membrane rupture. Regardless of obstetric management or clinical presentation, at least half of the pregnancies complicated by PROM deliver within 1 week of the incident. We discussed the potential complications associated with PROM including , maternal and infections, placental abruption, umbilical cord prolapse or compression, stillbirth, and endometritis. I agree with expectant management inpatient, latency antibiotics. She completed a betamethasone course for lung maturity and magnesium for neuroprophylaxis. In the setting of ruptured membranes with active labor, therapeutic tocolysis has not been shown to prolong latency or improve outcomes if corticosteroids have been administered for lung maturity. We recommend delivery at 34 weeks gestation, unless there is the presence of maternal or distress, intraamniotic infection, severe hemorrhage, or labor at an earlier gestational age. - Patient Problems (1) PROM (premature rupture of membranes) Onset Date: ~03/27/21 Current Visit: Yes Status: Acute Qualifiers: PROM gestational age: -third trimester Plan to address problem: 1. Continue expectant management unless complications above develop including IAI, nonreassuring status, active labor, maternal hemorrhage 2. May discontinue continuous monitoring. May perform heart tones TID for 1 hour monitoring unless concerns for contractions or wellbeing present 3. Continue latency antibiotics, NOW Day 12/28 4. s/p BMZ and Mg neuroprophylaxis 5. Plan for delivery at 34 weeks gestation
[2021-03-31] MEDS: ERYTHROMYCIN BASE 250 MG CAPSULE DR PO SCH ×4 (03:00→18:13)
[2021-03-31] MEDS: AMOXICILLIN 250 MG CAP PO SCH ×3 (06:14→22:08)
[2021-03-31] MEDS: LACTATED RINGERS 1,000 ML IV SCH ×2 (08:03→22:39)
[2021-03-31 10:37] LABS: Basophils % (Auto) 0.1 % (0.0-1.8); Hematocrit 21.6 % (30.3-42.9); Hemoglobin 7.3 gm/dl (10.1-14.3); Lymphocytes # (Auto) 1.4 K/mm3 (1.2-5.4); Mean Corpuscular HGB Conc 34 % (30-34); Mean Corpuscular Volume 91 fl (79-97); Monocytes % (Auto) 10.1 % (0.0-7.3); Platelet Count 180 K/mm3 (140-440); Red Blood Count 2.37 M/mm3 (3.65-5.03)
--- NOTE | 2021-03-31 19:00 | Progress Note ---
Assessment and Plan - Patient Problems (1) PROM (premature rupture of membranes) Onset Date: ~03/27/21 Current Visit: Yes Status: Acute Qualifiers: PROM gestational age: -third trimester Subjective Date of service: 03/31/21 Principal diagnosis: 31 WK IUP,PPROM Interval history: ON ATB, BEDREST. HAS HAD STEROIDS.CX IS CLOSED. Objective - Constitutional Vitals: Vital Signs - 12hr 03/31/21 03/31/21 03/31/21 08:06 08:08 12:01 Temperature 98.6 F 98.6 F Pulse Rate 76 76 91 H Respiratory 14 16 Rate Blood Pressure 97/51 109/59 Blood Pressure 97/51 109/59 [Left] O2 Sat by Pulse 100 Oximetry 03/31/21 16:39 Temperature 98.9 F Pulse Rate 80 Respiratory 18 Rate Blood Pressure 108/54 Blood Pressure [Left] O2 Sat by Pulse 93 Oximetry General appearance: Present: no acute distress, well-nourished - EENT Eyes: PERRL, EOM intact ENT: hearing intact, clear oral mucosa Ears: bilateral: normal - Respiratory Respiratory effort: normal Respiratory: bilateral: CTA - Breasts Breasts: normal - Cardiovascular Rhythm: regular Heart Sounds: Present: S1 & S2. Absent: gallop, rub Extremities: pulses intact, No edema, normal color, Full ROM - Gastrointestinal General gastrointestinal: Present: soft, non-tender, non-distended, normal bowel sounds - Genitourinary Female genitourinary: normal - Integumentary Integumentary: clear, warm, dry - Musculoskeletal Musculoskeletal: 1, strength equal bilaterally - Neurologic Neurologic: moves all extremities - Psychiatric Psychiatric: memory intact, appropriate mood/affect, intact judgment & insight - Labs CBC & Chem 7: 03/31/21 09:57 Labs: Abnormal lab results 03/31/21 Range/Units 09:57 RBC 2.37 L (3.65-5.03) M/mm3 Hgb 7.3 L (10.1-14.3) gm/dl Hct 21.6 L (30.3-42.9) % RDW 13.0 L (13.2-15.2) % [place] % (Auto) 10.1 H (0.0-7.3) % [place] # (Auto) 1.0 H (0.0-0.8) K/mm3 Seg Neutrophils % 75.8 H (40.0-70.0) % Medications & Allergies - Medications Allergies/Adverse Reactions: Allergies No Known Allergies Allergy (Verified 03/30/21 07:42) Home Medications: Home Medications Medication Instructions Recorded Confirmed Last Taken Type Ondansetron HCl [Zofran] 4 mg PO DAILY 03/29/21 03/29/21 03/27/21 History No.137/Iron/Folic Acd 1 each PO DAILY 03/29/21 03/29/21 03/28/21 Histor y [[facility] Vit[facility] Tablet] Active Medications: Generic Name Dose Route Start Last Admin Trade Name Freq PRN Reason Stop Dose Admin Amoxicillin 250 mg 03/30/21 14:00 03/31/21 14:02 Amoxicillin 250 Mg Cap PO 04/04/21 13:59 250 mg Q8HR AKILA Administration Protocol Ephedrine Sulfate 10 mg 03/28/21 15:27 Ephedrine Sulfate 50 Mg/1 Ml Inj IV Q2M PRN Hypotension Erythromycin 250 mg 03/30/21 12:00 03/31/21 18:13 Erythromycin Base [address] PO 04/04/21 06:01 250 mg Q6HR AKILA Administration Protocol Fentanyl 50 mcg 03/28/21 15:32 Fentanyl 100 Mcg/2 Ml Inj IV Q6HR PRN Pain, Moderate (4-6) Oxytocin/Sodium Chloride 30 units in 500 mls @ 2 mls/hr 03/28/21 16:00 Pitocin/Ns 30 Unit/500ml IV TITR AKILA Protocol Lactated Ringer's 1,000 mls @ 125 mls/hr 03/28/21 15:30 03/31/21 08:03 Lactated Ringers IV 125 mls/hr DIRECT AKILA Administration Magnesium Sulfate 40 gm in 1,000 mls @ 50 mls/hr 03/28/21 16:00 03/29/21 16:17 Magnesium Sulfate 40gm/1000ml IV 0 gm/hr DIRECT AKILA 0 mls/hr Infusion 2 GM/HR Mineral Oil 30 ml 03/28/21 15:27 Mineral Oil 30 Ml Oral Liqd PO QHS PRN Constipation Terbutaline Sulfate 0.25 mg 03/28/21 15:27 Terbutaline 1 Mg/1 Ml Inj SUB-Q ONCE PRN Hyperstimulation/Hypertonicity
--- NOTE | 2021-03-31 23:45 | Event Note ---
Date: 03/31/21 This is a late entry. I received sign out from Dr. Sharp for pt and cbc and type and screen ordered and test results notified to Dr. Smiley the new physician internal communications intern earlier today when I was no longer on shift.
[2021-04-01] MEDS: ERYTHROMYCIN BASE 250 MG CAPSULE DR PO SCH ×4 (00:17→18:28)
[2021-04-01] MEDS: AMOXICILLIN 250 MG CAP PO SCH ×3 (05:41→22:34)
[2021-04-01] MEDS: LACTATED RINGERS 1,000 ML IV SCH (05:41)
--- NOTE | 2021-04-01 07:05 | Progress Note ---
Subjective - Subjective Date of service: 04/01/21 Principal diagnosis: 31 WK IUP,PPROM Interval history: 20yo at 32.3 weeks with PPROM. She is doing well at bedside. SP celestonex2,off MGSO4 no contractions on PO abx No contractions Category 1 strip [place]: not ana continue conservative management. Maternal/ well being reassuring at bedside. Maral Sharp MD Objective - Vital Signs Vital Signs: Vital Signs - 12hr 03/31/21 03/31/21 03/31/21 19:53 19:54 19:55 Temperature 98.5 F Pulse Rate 84 82 Blood Pressure 102/58 Blood Pressure 102/58 [Right] O2 Sat by Pulse 100 100 Oximetry 03/31/21 03/31/21 19:58 20:03 Temperature Pulse Rate 90 83 Blood Pressure Blood Pressure [Right] O2 Sat by Pulse 98 97 Oximetry - Labs Labs: Abnormal Labs 03/28/21 03/28/21 03/29/21 13:35 17:58 10:03 RBC 3.02 L Hgb 9.4 L Hct 27.5 L RDW 12.6 L [place] % (Auto) [place] # (Auto) Seg Neutrophils % Magnesium 5.90 H Membranes Rupture Positive A 03/29/21 03/31/21 16:15 09:57 RBC 2.37 L Hgb 7.3 L Hct 21.6 L RDW 13.0 L [place] % (Auto) 10.1 H [place] # (Auto) 1.0 H Seg Neutrophils % 75.8 H Magnesium 6.00 H Membranes Rupture Laboratory Results - last 24 hr 03/31/21 03/31/21 03/31/21 09:57 09:57 10:00 WBC 10.1 RBC 2.37 L Hgb 7.3 L Hct 21.6 L MCV 91 MCH 31 MCHC 34 RDW 13.0 L Plt Count 180 Lymph % (Auto) 14.0 [place] % (Auto) 10.1 H Eos % (Auto) 0.0 Baso % (Auto) 0.1 Lymph # (Auto) 1.4 [place] # (Auto) 1.0 H Eos # (Auto) 0.0 Baso # (Auto) 0.0 Seg Neutrophils % 75.8 H Seg Neutrophils # 7.7 C-Reactive Protein 0.00 Blood Type A NEGATIVE Antibody Screen Negative
[2021-04-01] MEDS ORDERED: ONDANSETRON 8 MG ODT TAB PO PRN (08:39)
[2021-04-01] MEDS ORDERED: ONDANSETRON 4 MG ODT TAB PO PRN (21:32)
[2021-04-02] MEDS: ERYTHROMYCIN BASE 250 MG CAPSULE DR PO SCH ×4 (00:52→20:50)
[2021-04-02] MEDS: AMOXICILLIN 250 MG CAP PO SCH ×3 (06:15→21:17)
[2021-04-02 07:26] LABS: Basophils % (Auto) 0.1 % (0.0-1.8); Eosinophils % (Auto) 0.4 % (0.0-4.3); Hematocrit 23.3 % (30.3-42.9); Hemoglobin 7.9 gm/dl (10.1-14.3); Lymphocytes # (Auto) 2.1 K/mm3 (1.2-5.4); Lymphocytes % (Auto) 17.6 % (13.4-35.0); Mean Corpuscular HGB Conc 34 % (30-34); Mean Corpuscular Volume 90 fl (79-97); Monocytes # (Auto) 1.6 K/mm3 (0.0-0.8); Monocytes % (Auto) 13.2 % (0.0-7.3); Platelet Count 199 K/mm3 (140-440); Red Blood Count 2.58 M/mm3 (3.65-5.03); Red Cell Distribution Width 13.2 % (13.2-15.2)
--- NOTE | 2021-04-02 09:57 | Progress Note ---
Assessment and Plan - Patient Problems (1) PROM (premature rupture of membranes) Onset Date: ~03/27/21 Current Visit: Yes Status: Acute Qualifiers: PROM gestational age: -third trimester Subjective Date of service: 04/02/21 Principal diagnosis: 31 WK IUP,PPROM Objective - Constitutional Vitals: Vital Signs - 12hr 04/01/21 04/01/21 04/02/21 22:36 22:37 00:22 Temperature 98.2 F 98.1 F Pulse Rate 78 Respiratory 17 Rate Blood Pressure 102/54 Blood Pressure [Right] 04/02/21 04/02/21 04/02/21 06:16 08:30 08:32 Temperature 98 F 98.0 F Pulse Rate 83 83 Respiratory 15 14 Rate Blood Pressure 91/51 Blood Pressure 91/51 [Right] - Labs CBC & Chem 7: 04/02/21 06:35 Labs: Abnormal lab results 04/02/21 Range/Units 06:35 WBC 12.0 H (4.5-11.0) K/mm3 RBC 2.58 L (3.65-5.03) M/mm3 Hgb 7.9 L (10.1-14.3) gm/dl Hct 23.3 L (30.3-42.9) % Jennings % (Auto) 13.2 H (0.0-7.3) % Jennings # (Auto) 1.6 H (0.0-0.8) K/mm3 Seg Neutrophils # 8.3 H (1.8-7.7) K/mm3 Medications & Allergies - Medications Allergies/Adverse Reactions: Allergies No Known Allergies Allergy (Verified 03/30/21 07:42) Home Medications: Home Medications Medication Instructions Recorded Confirmed Last Taken Type Ondansetron HCl [Zofran] 4 mg PO DAILY 03/29/21 03/29/21 03/27/21 History No.137/Iron/Folic Acd 1 each PO DAILY 03/29/21 03/29/21 03/28/21 History [[facility] Tablet] Active Medications: Generic Name Dose Route Start Last Admin Trade Name Freq PRN Reason Stop Dose Admin Amoxicillin 250 mg 03/30/21 14:00 04/02/21 06:15 Amoxicillin 250 Mg Cap PO 04/04/21 13:59 250 mg Q8HR AKILA Administration Protocol Ephedrine Sulfate 10 mg 03/28/21 15:27 Ephedrine Sulfate 50 Mg/1 Ml Inj IV Q2M PRN Hypotension Erythromycin 250 mg 03/30/21 12:00 04/02/21 06:14 Erythromycin Base [address] PO 04/04/21 06:01 250 mg Q6HR AKILA Administration Protocol Fentanyl 50 mcg 03/28/21 15:32 Fentanyl 100 Mcg/2 Ml Inj IV Q6HR PRN Pain, Moderate (4-6) Oxytocin/Sodium Chloride 30 units in 500 mls @ 2 mls/hr 03/28/21 16:00 Pitocin/Ns 30 Unit/500ml IV TITR AKILA Protocol Lactated Ringer's 1,000 mls @ 125 mls/hr 03/28/21 15:30 04/01/21 07:30 Lactated Ringers IV 0 mls/hr DIRECT AKILA Infusion Magnesium Sulfate 40 gm in 1,000 mls @ 50 mls/hr 03/28/21 16:00 03/29/21 16:17 Magnesium Sulfate 40gm/1000ml IV 0 gm/hr DIRECT AKILA 0 mls/hr Infusion 2 GM/HR Mineral Oil 30 ml 03/28/21 15:27 Mineral Oil 30 Ml Oral Liqd PO QHS PRN Constipation Ondansetron HCl 4 mg 04/01/21 21:32 Ondansetron 4 Mg Odt Tab PO BID PRN Nausea And Vomiting Terbutaline Sulfate 0.25 mg 03/28/21 15:27 Terbutaline 1 Mg/1 Ml Inj SUB-Q ONCE PRN Hyperstimulation/Hypertonicity
[2021-04-03] MEDS: ERYTHROMYCIN BASE 250 MG CAPSULE DR PO SCH ×4 (00:55→18:30)
[2021-04-03] MEDS: AMOXICILLIN 250 MG CAP PO SCH ×2 (05:36→14:15)
--- NOTE | 2021-04-03 09:29 | Progress Note ---
Assessment and Plan - Patient Problems (1) PROM (premature rupture of membranes) Onset Date: ~03/27/21 Current Visit: Yes Status: Acute Qualifiers: PROM gestational age: -third trimester Subjective Date of service: 04/03/21 Principal diagnosis: 31 WK IUP,PPROM Interval history: CONTINUE PRESENT TREATMENT. Objective - Constitutional Vitals: Vital Signs - 12hr 04/03/21 05:38 Pulse Rate 84 Blood Pressure 97/52 General appearance: Present: no acute distress, well-nourished - Gastrointestinal General gastrointestinal: Present: soft - Genitourinary Female genitourinary: other (UTERUS IS SOFT.) - Labs CBC & Chem 7: 04/02/21 06:35 Medications & Allergies - Medications Allergies/Adverse Reactions: Allergies No Known Allergies Allergy (Verified 03/30/21 07:42) Home Medications: Home Medications Medication Instructions Recorded Confirmed Last Taken Type Ondansetron HCl [Zofran] 4 mg PO DAILY 03/29/21 03/29/21 03/27/21 History No.137/Iron/Folic Acd 1 each PO DAILY 03/29/21 03/29/21 03/28/21 History [[facility] Vitamins Tablet] Active Medications: Generic Name Dose Route Start Last Admin Trade Name Freq PRN Reason Stop Dose Admin Amoxicillin 250 mg 03/30/21 14:00 04/03/21 05:36 Amoxicillin 250 Mg Cap PO 04/04/21 13:59 250 mg Q8HR AKILA Administration Protocol Ephedrine Sulfate 10 mg 03/28/21 15:27 Ephedrine Sulfate 50 Mg/1 Ml Inj IV Q2M PRN Hypotension Erythromycin 250 mg 03/30/21 12:00 04/03/21 05:36 Erythromycin Base [address] PO 04/04/21 06:01 250 mg Q6HR AKILA Administration Protocol Fentanyl 50 mcg 03/28/21 15:32 Fentanyl 100 Mcg/2 Ml Inj IV Q6HR PRN Pain, Moderate (4-6) Oxytocin/Sodium Chloride 30 units in 500 mls @ 2 mls/hr 03/28/21 16:00 Pitocin/Ns 30 Unit/500ml IV TITR AKILA Protocol Lactated Ringer's 1,000 mls @ 125 mls/hr 03/28/21 15:30 04/01/21 07:30 Lactated Ringers IV 0 mls/hr DIRECT AKILA Infusion Magnesium Sulfate 40 gm in 1,000 mls @ 50 mls/hr 03/28/21 16:00 03/29/21 16:17 Magnesium Sulfate 40gm/1000ml IV 0 gm/hr DIRECT AKILA 0 mls/hr Infusion 2 GM/HR Mineral Oil 30 ml 03/28/21 15:27 Mineral Oil 30 Ml Oral Liqd PO QHS PRN Constipation Ondansetron HCl 4 mg 04/01/21 21:32 Ondansetron 4 Mg Odt Tab PO BID PRN Nausea And Vomiting Terbutaline Sulfate 0.25 mg 03/28/21 15:27 Terbutaline 1 Mg/1 Ml Inj SUB-Q ONCE PRN Hyperstimulation/Hypertonicity
--- NOTE | 2021-04-03 13:06 | Progress Note ---
Assessment and Plan PROM We discussed PROM and the implications at this gestational age in . I explained PROM may occur for a variety of reasons. Risk factors associated with PROM include a prior delivery or PROM, 2nd or 3rd trimester bleeding, smoking, low BMI, and recreational drug use. Among women with PROM, clinical evidence of an infection is present in approximately 15-25%. Latency to after membrane rupture is inversely correlated with the gestational age at membrane rupture. Regardless of obstetric management or clinical presentation, at least half of the pregnancies complicated by PROM deliver within 1 week of the incident. We discussed the potential complications associated with PROM including , maternal and infections, placental abruption, umbilical cord prolapse or compression, stillbirth, and endometritis. We recommend delivery at 34 weeks gestation, unless there is the presence of maternal or distress, intraamniotic infection, severe hemorrhage, or labor at an earlier gestational age. A. I. IUP 32.5 weeks 2. S/P PPROM 03/27/2021 - afebrile ' - ABD soft/NT - denies sxs of PTL 3. 03/28/2021 [facility] US Oligohydramnios with LISA of 2.4 cm 4. S/P BMZ and Mg neuroprophylaxis 5. Previous CAT I tracing 6. Anemia - Patient Problems (1) PROM (premature rupture of membranes) Onset Date: ~03/27/21 Current Visit: Yes Status: Acute Qualifiers: PROM gestational age: -third trimester Plan to address problem: 1. Continue expectant management unless complications above develop including I AI, nonreassuring status, active labor, maternal hemorrhage 2. With continued AFM No change in surveillance As per Dr Geovanny Perry May perform heart tones TID for 1 hour monitoring unless concerns for contractions or wellbeing present 3. Discontinue latency antibiotics, NOW Day 06/30 4. s/p BMZ and Mg neuroprophylaxis 5. Plan for delivery at 34 weeks gestation unless there is the presence of maternal or distress, intraamniotic infection, severe hemorrhage, or labor at an earlier gestational age. 6. Kindly order OB Ultrasound with BPP and EFW 7. NICU consult 8. Kindly address her anemia 9. Weekly CBC w/diff With any concerns kindly notify air export operations agent [facility] provider - Dr. Noa Navas Subjective - Subjective Date of service: 04/03/21 (Ms. Morin is a 20 y/o seen as a follow up following PPROM 03/27/2021 She reports without any complaints of contractions DFM or vaginal bleeding. She is without any complaints on my evaluation. She continues to have clear leakage.) Principal diagnosis: 31 WK IUP,PPROM Objective - Vital Signs Vital Signs: Vital Signs - 12hr 04/03/21 04/03/21 04/03/21 05:38 07:30 10:39 Temperature 98.1 F Pulse Rate 84 85 Respiratory 16 Rate Blood Pressure 97/52 89/52 - Exam Breasts: deferred Cardiovascular: Regular rate Lungs: Normal air movement Abdomen: Present: other (gravid) Uterus: Present: normal FHR: category 1 (as per previous tracing ) Uterine Contraction Monitor Mode: Palpation (No CTX palable during follow up [facility] visit) Extremities: normal - Labs Labs: Abnormal Labs 03/28/21 03/28/21 03/29/21 13:35 17:58 10:03 WBC RBC 3.02 L Hgb 9.4 L Hct 27.5 L RDW 12.6 L Chelan % (Auto) Chelan # (Auto) Seg Neutrophils % Seg Neutrophils # Magnesium 5.90 H Membranes Rupture Positive A 03/29/21 03/31/21 04/02/21 16:15 09:57 06:35 WBC 12.0 H RBC 2.37 L 2.58 L Hgb 7.3 L 7.9 L Hct 21.6 L 23.3 L RDW 13.0 L [place] % (Auto) 10.1 H 13.2 H [place] # (Auto) 1.0 H 1.6 H Seg Neutrophils % 75.8 H Seg Neutrophils # 8.3 H Magnesium 6.00 H Membranes Rupture
[2021-04-04] MEDS: ERYTHROMYCIN BASE 250 MG CAPSULE DR PO SCH ×2 (00:40→06:26)
[2021-04-04] MEDS: AMOXICILLIN 250 MG CAP PO SCH (00:40)
[2021-04-04 06:27] VITALS: BP 91/50
--- NOTE | 2021-04-04 09:04 | Progress Note ---
Assessment and Plan - Patient Problems (1) PROM (premature rupture of membranes) Onset Date: ~03/27/21 Current Visit: Yes Status: Acute Qualifiers: PROM onset of labor timing: unspecified duration between rupture of membranes and onset of labor PROM gestational age: -third trimester Qualified Code(s): O42.913 - premature rupture of membranes, unspecified as to length of time between rupture and onset of labor, third trimester Plan to address problem: s/p Abx. s/p Mag and BMZ. Continue expectant management until 34 weeks of earlier if indicated. --Make NICU aware of patient --US for BPP and EFW --Anticipate (2) Anemia Current Visit: Yes Status: Acute Plan to address problem: Iron BID Subjective - Subjective Date of service: 04/04/21 Principal diagnosis: 32 WK IUP,PPROM Interval history: Patient wants to sleep and not be bothered. Declines assessment. Wants lights off in room. Denies labor complaints. Continued leakage of fluid. +FM. Patient reports: loss of fluid Objective - Vital Signs Vital Signs: Vital Signs - 12hr 04/04/21 04/04/21 04/04/21 00:45 00:51 04:00 Temperature 98 F 98.1 F Pulse Rate 88 Respiratory 18 18 Rate Blood Pressure 107/57 04/04/21 06:26 Temperature Pulse Rate 88 Respiratory Rate Blood Pressure 91/50 - Exam Abdomen: Present: normal appearance FHR: category 1 Uterine Contraction Monitor Mode: External - Labs Labs: Abnormal Labs 03/28/21 03/28/21 03/29/21 13:35 17:58 10:03 WBC RBC 3.02 L Hgb 9.4 L Hct 27.5 L RDW 12.6 L Edmunds % (Auto) Edmunds # (Auto) Seg Neutrophils % Seg Neutrophils # Magnesium 5.90 H Membranes Rupture Positive A 03/29/21 03/31/21 04/02/21 16:15 09:57 06:35 WBC 12.0 H RBC 2.37 L 2.58 L Hgb 7.3 L 7.9 L Hct 21.6 L 23.3 L RDW 13.0 L Edmunds % (Auto) 10.1 H 13.2 H Edmunds # (Auto) 1.0 H 1.6 H Seg Neutrophils % 75.8 H Seg Neutrophils # 8.3 H Magnesium 6.00 H Membranes Rupture
[2021-04-04] MEDS ORDERED: FERROUS SULFATE 325 MG TAB PO SCH (10:00)
--- NOTE | 2021-04-04 15:33 | Ultrasound Report ---
ULTRASOUND OBSTETRIC LIMITED INDICATION / CLINICAL INFORMATION: 36.2 WEEK. DECLINING CARE.. Clinical Gestational Age (GA): 32.6 weeks.days COMPARISON: Limited OB ultrasound 03/28/2021 FINDINGS: HEART RATE (beats per minute): 138 AMNIOTIC FLUID: Subjectively low amniotic fluid. A final calculated. PRESENTATION: Cephalic. ADDITIONAL FINDINGS: Biparietal diameter is 7.8 cm with estimated gestational age of 31 weeks and 2 d ays, head circumference is 30.8 cm with estimated gestational age of weeks and 3 days, abdominal circ umference is 26.5 cm with estimated gestational age of 30 weeks and 4 days, and femur length is 6.4 c m with estimated gestational age of 33 weeks and 0 days. Estimated weight is 1841 g. IMPRESSION: 1. Subjectively low amniotic fluid suggesting oligohydramnios. Otherwise no significant abnormality. Signer Name: Alejandro Liz MD Signed: 04/04/2021 3:28 PM Workstation Name: [id number]
--- NOTE | 2021-04-04 16:27 | Event Note ---
Date: 04/04/21 US completed. EFW showing appropriately growing fetus, however with BPP 4/8 for LISA (expected) and breathing. Plan for repeat. Plan for continue with current plan of care, anticipated delivery at 34 weeks or earlier as indicated Called ~30 minutes after this result by RN expressing that patient wanted to leave AMA during conversation with NICU provider Dr Kimble. Expressed to patient that this would not be recommended for maternal and indications, however still refused. Patient still plans to leave against medical advice.
--- NOTE | 2021-04-04 16:52 | Event Note ---
Date: 04/04/21 Met with mother and father of the baby for consult requested by OB team for 32 week with PPROM. Mother made me aware immediately after introducing my self and purpose of my visit that she does not want to have her baby at [facility] and is waiting to discuss this with her OB. She states that she does not feel 'comfortable with the care at [facility] so far and is adamant that she will not deliver her baby at this hospital. I attempted to offer support for a scenario where her baby is born emergently prior to her getting to a different hospital but she was not interested in having this discussion and when asked by her nurse if her intent is to leave regardless of doctor's advice she stated that she wanted to leave. Her nurse and I both advised her to seek immediate medical attention in a hospital after leaving [facility] for her and her baby's safety in light of PPROM & oligo - Mother and father both stated that they will go immediately to a hospital once they leave [facility]. Nurse to inform OB about mother's intent to leave [facility]
--- NOTE | 2021-04-04 17:36 | Ultrasound Report ---
ULTRASOUND OBSTETRIC LIMITED ULTRASOUND BIOPHYSICAL PROFILE INDICATION / CLINICAL INFORMATION: PPROM at 32 weeks. Clinical Gestational Age (GA): 32.6 weeks.days COMPARISON: OB ultrasound 04/04/2021 and priors FINDINGS: BREATHING MOVEMENT = 0 GROSS BODY MOVEMENT = 2 TONE = 2 QUALITATIVE AMNIOTIC FLUID VOLUME = 0 TOTAL BIOPHYSICAL SCORE = 8/8 HEART RATE (beats per minute): 138 AMNIOTIC FLUID INDEX (cm) = 3.1 (normal = 7-24 cm) PRESENTATION: Cephalic. ADDITIONAL FINDINGS: None. IMPRESSION: 1. Biophysical Score = 4/8. No breathing movements are visualized. Oligohydramnios is pre sent. Signer Name: Alejandro Liz MD Signed: 04/04/2021 5:31 PM Workstation Name: [id number]
--- NOTE | 2021-04-15 19:04 | Discharge Summary ---
Providers - Providers Date of Admission: 03/28/21 15:27 Attending physician: CED ASHLEY MD 03/29/21 10:39 Consult to Physician [CONS] Routine Comment: Consulting Provider: CED ASHLEY Physician Instructions: Reason For Exam: APA consult/ PPROM 04/04/21 09:04 Consult to Physician [CONS] Routine Comment: Consulting Provider: RADHA VIZCARRA Physician Instructions: Reason For Exam: PPROM T 32 weeks Primary care physician: CED ASHLEY MD Hospitalization Reason for admission: rupture of membranes Hospital course: 20 yo admitted on 03/28/21 for concern for PPROM at 31w6d ([facility] 05/24/21). Started on antibiotics for latency, Magnesium for neuroprotection, and steroids for lung maturity. She left AMA on 04/04/21 prior to delivery. Not in labor on discharge. Condition at discharge: Fair Disposition: [id number] LEFT AGAINST MED ADVICE - Discharge Diagnoses (1) PROM (premature rupture of membranes) Status: Acute Qualifiers: PROM onset of labor timing: unspecified duration between rupture of membranes and onset of labor PROM gestational age: -third trimester Qualified Code(s): O42.913 - premature rupture of membranes, unspecified as to length of time between rupture and onset of labor, third trimester (2) Anemia Status: Acute Plan - Provider Discharge Summary Additional instructions: [] Smoking cessation referral if applicable(refer to patient education folder for contact #) [] Refer to [facility]'s [facility] Booklet Call your doctor immediately for: * Fever > 100.5 * Heavy vaginal bleeding ( >1 pad per hour) * Severe persistent headache * Shortness of breath * Reddened, hot, painful area to leg or breast * Drainage or odor from incision. * Keep incision clean and dry at all times and follow doctor's instructions regarding bathing/showering - Follow up plan Follow up: CED ASHLEY MD [Primary Care Provider] - 7 Days
== END 2021-04-04 16:50 | disposition left against medical advice (07) | DRG 781 ==
LOC: TRG 13:01 → APU 13:02 → LD 15:27 → EEVIPCON 15:27 → TRG 15:27 → LD 15:34
PROVIDERS: ADMIT Obstetrics & Gynecology; ATTEND Obstetrics & Gynecology
DX: O42.913 Preterm premature rupture of membranes, unspecified as to length of time between rupture and onset of labor, third trimester (principal); O99.013 Anemia complicating pregnancy, third trimester; Z20.822 Contact with and (suspected) exposure to COVID-19; O36.8330 Maternal care for abnormalities of the fetal heart rate or rhythm, third trimester, not applicable or unspecified; Z3A.32 32 weeks gestation of pregnancy; Z53.29 Procedure and treatment not carried out because of patient's decision for other reasons; D64.9 Anemia, unspecified
CPT/HCPCS: 36415; 59025; 76815; 76816; 76819; 83735; 84112; 85025; 85027; 86140; 86592; 86706; 86762; 86803; 86850; 86900; 86901; 87806; G0378; J0290; J0702; J1364; J3475; J7120; U0003